=== PATIENT | male | born 1965 | race Caucasian/White ===

== ENCOUNTER 2022-09-27 18:16 | Emergency (ER) | payer OTHER ==
[~2022-09-27] VITALS: Ht 172.7 cm; Wt 79.5 kg
[2022-09-27 18:34] VITALS: BP 132/79
[2022-09-27] MEDS ORDERED: METF-1211 PO (18:34)
== END 2022-09-27 22:44 | disposition home or self-care (01) ==
LOC: EMS 18:20
DX: F12.929 Cannabis use, unspecified with intoxication, unspecified (principal); F41.9 Anxiety disorder, unspecified; E11.9 Type 2 diabetes mellitus without complications
CPT/HCPCS: 82962; 99283